=== PATIENT | female | born 1945 | race Caucasian/White ===

== ENCOUNTER 2020-12-18 08:41 | Inpatient (IN) | payer MEDICARE, OTHER ==
[~2020-12-18 08:41] MED LIST: ALENDRONATE SODI5 MG PO; CENTRUM SILVER1 EAC4 PO; DIGITEK125 MC1 PO; EFFEXOR XR150 MG PO; LANOXIN125 MCG PO; LASIX20 MG PO; LIPITOR20 M1 PO; LOSARTAN-HCTZ1 EAC1 PO; NORVASC10 MG PO; OXYCODONE-ACET1 EACH PO; PERCOCET 10-321 EACH PO; PLAQUENIL200 MG PO; PREDNISONE5 MG PO; PROBIOTIC1 EAC1 PO; PROBIOTIC250 MG PO; REQUIP1 MG PO; TOPROL XL100 MG PO; XARELTO20 MG PO
[2020-12-18 09:59] LABS: BASOPHIL 0.9 % (0-2); EOSINOPHIL 1.6 % (0-7); HCT 32.9 % (37.0-47.0); HGB 10.3 g/dl (12.5-16.0); MCH 30.6 pg (25.0-31.0); MCHC 31.3 g/dL (32.0-36.0); MCV 97.6 fL (78.0-100.0); MPV 10.2 fL (6.0-9.5); NEUTROPHIL 82.1 % (41-80); NRBC 0; PLT 243 K/uL (150-400); RBC 3.37 M/uL (4.20-5.40); WBC 9.2 K/uL (4.0-10.5)
[2020-12-18 10:04] LABS: INR 1.19 (0.9-1.2); PROTHROMBIN TIME 14.3 SECONDS (11.4-13.6); PTT 36.7 SECONDS (22.2-34.7)
[2020-12-18 10:15] LABS: IRON % SATURATION 13.4 %SAT (20-50)
[2020-12-18 10:25] LABS: ALBUMIN 3.3 g/dL (3.4-5.0); BILIRUBIN - TOTAL 0.7 mg/dL (0.2-1.0); BUN/CREAT RATIO (CALC) 21.2 RATIO; CREATININE 1.65 mg/dL (0.51-0.95); GLOBULIN (CALCULATION) 4.7 g/dL; MAGNESIUM 2.9 mg/dL (1.8-2.4); POTASSIUM 4.5 mmol/L (3.5-5.1)
[2020-12-18 10:42] LABS: BILIRUBIN NEGATIVE (NEGATIVE); BLOOD NEGATIVE Ery/uL (NEGATIVE); CLARITY CLEAR (CLEAR); COLOR YELLOW (YELLOW); GLUCOSE (U) NORMAL (NORMAL); LEUKOCYTES NEGATIVE Leu/uL (NEGATIVE); NITRITE NEGATIVE (NEGATIVE); PROTEIN TRACE (LOW) mg/dL (NEGATIVE); SPECIFIC GRAVITY 1.015 (1.001-1.030); UROBILINOGEN 0.2 mg/dL (0.2-1.0); pH 8.5 (5.0-9.0)
[2020-12-18 10:51] LABS: BACTERIA TRACE; SQUAMOUS EPITHELIAL CELLS RARE
[2020-12-18] MEDS ORDERED: PREDNISONE5 MG PO (12:35)
[2020-12-18] MEDS ORDERED: TOPROL XL 25MG25 MG PO (12:35)
[2020-12-18] MEDS ORDERED: ALENDRONATE SOD35 MG PO (12:36)
[2020-12-18] MEDS ORDERED: VENLAFAXINE HC150 MG PO (12:38)
[2020-12-18] MEDS ORDERED: PERCOCET 10-321 EACH PO (12:38)
[2020-12-18] MEDS ORDERED: ALDACTONE25 MG PO (12:38)
[2020-12-18] MEDS ORDERED: RETACRIT10000 UNIT SC (12:40)
[2020-12-18] MEDS ORDERED: ANORO ELLIPTA1 EACH INH (12:41)
[2020-12-18] MEDS ORDERED: PLAVIX75 MG PO (12:41)
[2020-12-18] MEDS ORDERED: LASIX40 MG PO (12:42)
[2020-12-18] MEDS ORDERED: TRAZODONE 100M100 MG PO (12:44)
[2020-12-18] MEDS ORDERED: HYDROXYCHLOROQ200 MG PO (12:45)
[2020-12-18] MEDS ORDERED: REQUIP1 MG PO (12:46)
[2020-12-18] MEDS ORDERED: MULTI FOR HER1 EACH PO (12:46)
[2020-12-18] MEDS ORDERED: ZOFRAN4 M1 PO (12:47)
[2020-12-18] MEDS ORDERED: UROCIT-K10 MEQ PO (12:47)
[2020-12-18] MEDS ORDERED: CIPRO250 MG PO (12:48)
[2020-12-18] MEDS ORDERED: HYDRALAZINE25 MG PO (12:50)
[2020-12-18] MEDS ORDERED: GABAPENTIN100 MG PO (12:51)
[2020-12-19 03:56] LABS: HCT 33.1 % (37.0-47.0); HGB 10.5 g/dl (12.5-16.0); MCH 30.5 pg (25.0-31.0); MCHC 31.7 g/dL (32.0-36.0); MCV 96.2 fL (78.0-100.0); MPV 9.5 fL (6.0-9.5); RBC 3.44 M/uL (4.20-5.40); RDW 13.7 % (11.5-14.0); WBC 7.2 K/uL (4.0-10.5)
[2020-12-19 04:24] LABS: BUN/CREAT RATIO (CALC) 23.6 RATIO; CREATININE 1.4 mg/dL (0.51-0.95)
[2020-12-20 04:30] LABS: HCT 36.1 % (37.0-47.0); HGB 11.6 g/dl (12.5-16.0); MCH 30.9 pg (25.0-31.0); MCHC 32.1 g/dL (32.0-36.0); MCV 96.3 fL (78.0-100.0); MPV 9.4 fL (6.0-9.5); RBC 3.75 M/uL (4.20-5.40); RDW 13.5 % (11.5-14.0); WBC 8.3 K/uL (4.0-10.5)
[2020-12-20 04:55] LABS: BUN/CREAT RATIO (CALC) 23.6 RATIO; CREATININE 1.95 mg/dL (0.51-0.95); POTASSIUM 4.5 mmol/L (3.5-5.1)
[2020-12-20] MEDS ORDERED: TOPROL XL 50 MG50 MG PO (09:55)
[2020-12-20] MEDS ORDERED: NORVASC5 MG PO (09:55)
[2020-12-20] MEDS ORDERED: MEDROL 4MG DOSEP4 MG PO (09:56)
[2021-02-02] MEDS ORDERED: NEURONTIN100 M1 PO (14:33)
[2021-02-02] MEDS ORDERED: OXYCODONE-ACET1 EACH PO (17:20)
[2021-03-23] MEDS ORDERED: MORPHINE SULFAT15 MG PO ×2 (18:03→18:10)
[2021-03-23] MEDS ORDERED: OXYCODONE-ACET1 EACH PO (18:03)
[2021-04-21] MEDS ORDERED: OXYCODONE-ACET1 EACH PO (17:52)
[2021-06-07] MEDS ORDERED: OXYCODONE-ACET1 EACH PO (10:53)
== END 2020-12-20 11:43 | disposition home or self-care (01) | DRG 291 ==
LOC: FER 08:41 → FTCU 11:03
PROVIDERS: Emergency Medicine; Internal Medicine Cardiovascular Disease; ADMIT Hospitalist
DX: I11.0 Hypertensive heart disease with heart failure (principal); U07.1 COVID-19; J96.01 Acute respiratory failure with hypoxia; I47.2 Ventricular tachycardia; I50.33 Acute on chronic diastolic (congestive) heart failure; I16.0 Hypertensive urgency; I25.10 Atherosclerotic heart disease of native coronary artery without angina pectoris; M06.9 Rheumatoid arthritis, unspecified; I27.20 Pulmonary hypertension, unspecified; I48.0 Paroxysmal atrial fibrillation; G89.4 Chronic pain syndrome; J44.9 Chronic obstructive pulmonary disease, unspecified; F41.9 Anxiety disorder, unspecified; I25.2 Old myocardial infarction; Z95.5 Presence of coronary angioplasty implant and graft; Z98.41 Cataract extraction status, right eye; Z98.42 Cataract extraction status, left eye; Z90.49 Acquired absence of other specified parts of digestive tract; Z87.891 Personal history of nicotine dependence
CPT/HCPCS: 36415; 71046; 80048; 80053; 81001; 83540; 83550; 83735; 83880; 84443; 84484; 85025; 85610; 85730; 94010; C9399; G0378; J1100; J1650; J7050; J7512; Q0162; U0002

== ENCOUNTER 2021-01-20 10:24 | Inpatient (IN) | payer MEDICARE ==
[~2021-01-20 10:24] MED LIST changes: +ALDACTONE25 MG PO; +ALENDRONATE SOD35 MG PO; +ANORO ELLIPTA1 EACH INH; +CIPRO250 MG PO; +GABAPENTIN100 MG PO; +HYDRALAZINE25 MG PO; +HYDROXYCHLOROQ200 MG PO; +LASIX40 MG PO; +MEDROL 4MG DOSEP4 MG PO; +MULTI FOR HER1 EACH PO; +NORVASC5 MG PO; +PLAVIX75 MG PO; +RETACRIT10000 UNIT SC; +TOPROL XL 25MG25 MG PO; +TOPROL XL 50 MG50 MG PO; +TRAZODONE 100M100 MG PO; +UROCIT-K10 MEQ PO; +VENLAFAXINE HC150 MG PO; +ZOFRAN4 M1 PO
[2021-01-20 12:34] LABS: BASOPHIL 0.5 % (0-2); EOSINOPHIL 1.8 % (0-7); HGB 8.2 g/dl (12.5-16.0); LYMPHOCYTE 7.8 % (15-48); MCH 30.6 pg (25.0-31.0); MCHC 32.8 g/dL (32.0-36.0); MCV 93.3 fL (78.0-100.0); MONOCYTE 8.6 % (0-12); MPV 9.9 fL (6.0-9.5); NEUTROPHIL 80.5 % (41-80); NRBC 0; PLT 286 K/uL (150-400); RBC 2.68 M/uL (4.20-5.40); RDW 16.2 % (11.5-14.0); RETICULOCYTE COUNT 6.9 % (1.0-2.0); WBC 7.3 K/uL (4.0-10.5)
[2021-01-20 12:37] LABS: INR 0.91 (0.9-1.2); PROTHROMBIN TIME 11.6 SECONDS (11.4-13.6); PTT 32.6 SECONDS (22.2-34.7)
[2021-01-20 12:48] LABS: IRON % SATURATION 13.1 %SAT (20-50)
[2021-01-20 12:55] LABS: LACTIC ACID 1.7 mmol/L (0.4-1.9)
[2021-01-20 13:05] LABS: ALBUMIN 3.5 g/dL (3.4-5.0); BILIRUBIN - TOTAL 1.2 mg/dL (0.2-1.0); CREATININE 1.62 mg/dL (0.51-0.95); GLOBULIN (CALCULATION) 3.7 g/dL; MAGNESIUM 2.1 mg/dL (1.8-2.4); POTASSIUM 4.3 mmol/L (3.5-5.1); TOTAL PROTEIN 7.2 g/dL (6.4-8.2)
[2021-01-20 14:36] LABS: BILIRUBIN NEGATIVE (NEGATIVE); BLOOD 2+ Ery/uL (NEGATIVE); CLARITY CLEAR (CLEAR); COLOR YELLOW (YELLOW); GLUCOSE (U) NORMAL (NORMAL); LEUKOCYTES NEGATIVE Leu/uL (NEGATIVE); NITRITE NEGATIVE (NEGATIVE); PROTEIN NEGATIVE (NEGATIVE); UROBILINOGEN 0.2 mg/dL (0.2-1.0)
[2021-01-20 14:41] LABS: BACTERIA TRACE
[2021-01-20] MEDS ORDERED: LOPRESSOR25 MG PO (18:33)
[2021-01-21 05:47] LABS: BASOPHIL 0.3 % (0-2); EOSINOPHIL 0 % (0-7); HCT 21.6 % (37.0-47.0); LYMPHOCYTE 8.1 % (15-48); MCH 30.7 pg (25.0-31.0); MCHC 32.4 g/dL (32.0-36.0); MCV 94.7 fL (78.0-100.0); MONOCYTE 5.5 % (0-12); MPV 9.4 fL (6.0-9.5); NRBC 0; PLT 223 K/uL (150-400); RBC 2.28 M/uL (4.20-5.40); RDW 16.2 % (11.5-14.0); WBC 6.4 K/uL (4.0-10.5)
[2021-01-21 06:18] LABS: ALBUMIN 2.7 g/dL (3.4-5.0); BILIRUBIN - TOTAL 0.6 mg/dL (0.2-1.0); BUN/CREAT RATIO (CALC) 22.2 RATIO; C-REACTIVE PROTEIN 5.7 mg/dL (<=0.90); CREATININE 1.35 mg/dL (0.51-0.95); GLOBULIN (CALCULATION) 3.8 g/dL; TOTAL PROTEIN 6.5 g/dL (6.4-8.2)
--- NOTE | 2021-01-21 14:31 | NUR ---
01/21/21 Ms. Azael londono lives at home with her spouse. She does not use any DME nor is she followed by services. Discharge is anticipated for 01/22. No discharge planning needs are anticipated.
[2021-01-22] MEDS ORDERED: LOPRESSOR50 MG PO ×2 (08:21→08:54)
[2021-01-22] MEDS ORDERED: PREDNISONE 20MG20 MG PO (08:21)
[2021-01-22] MEDS ORDERED: ELIQUIS2.5 MG PO (08:21)
[2021-01-22] MEDS ORDERED: PREDNISONE 10MG10 MG PO (08:21)
[2021-01-22] MEDS ORDERED: ISOSORBIDE MONO60 M1 PO (08:34)
[2021-01-22] MEDS ORDERED: CARDIZEM CD120 MG PO (08:58)
[2021-01-22 09:18] LABS: BASOPHIL 0.4 % (0-2); EOSINOPHIL 0.6 % (0-7); HCT 27.6 % (37.0-47.0); HGB 8.9 g/dl (12.5-16.0); LYMPHOCYTE 13.5 % (15-48); MCH 30.8 pg (25.0-31.0); MCHC 32.2 g/dL (32.0-36.0); MCV 95.5 fL (78.0-100.0); MONOCYTE 7.1 % (0-12); MPV 9.3 fL (6.0-9.5); NEUTROPHIL 76.1 % (41-80); NRBC 0; PLT 301 K/uL (150-400); RBC 2.89 M/uL (4.20-5.40); RDW 16.4 % (11.5-14.0); WBC 10.8 K/uL (4.0-10.5)
[2021-01-22 09:44] LABS: BUN/CREAT RATIO (CALC) 22.1 RATIO; CREATININE 1.31 mg/dL (0.51-0.95); POTASSIUM 3.3 mmol/L (3.5-5.1)
[2021-02-02] MEDS ORDERED: NEURONTIN100 M1 PO (14:33)
[2021-02-02] MEDS ORDERED: OXYCODONE-ACET1 EACH PO (17:20)
[2021-03-23] MEDS ORDERED: MORPHINE SULFAT15 MG PO ×2 (18:03→18:10)
[2021-03-23] MEDS ORDERED: OXYCODONE-ACET1 EACH PO (18:03)
[2021-04-21] MEDS ORDERED: OXYCODONE-ACET1 EACH PO (17:52)
[2021-06-07] MEDS ORDERED: OXYCODONE-ACET1 EACH PO (10:53)
== END 2021-01-22 12:20 | disposition home or self-care (01) | DRG 546 ==
LOC: FER 10:24 → FICU 16:08 → FMS 01-21 12:11
PROVIDERS: Emergency Medicine; ADMIT Allergy & Immunology Allergy
PROC: 30233N1 Transfusion of Nonautologous Red Blood Cells into Peripheral Vein, Percutaneous Approach (ICD-10-PCS; principal; 2021-01-21)
DX: M06.9 Rheumatoid arthritis, unspecified (principal); I48.20 Chronic atrial fibrillation, unspecified; I50.30 Unspecified diastolic (congestive) heart failure; I13.0 Hypertensive heart and chronic kidney disease with heart failure and stage 1 through stage 4 chronic kidney disease, or unspecified chronic kidney disease; M35.3 Polymyalgia rheumatica; I27.20 Pulmonary hypertension, unspecified; I08.0 Rheumatic disorders of both mitral and aortic valves; Z20.822 Contact with and (suspected) exposure to COVID-19; E11.22 Type 2 diabetes mellitus with diabetic chronic kidney disease; D63.1 Anemia in chronic kidney disease; I72.8 Aneurysm of other specified arteries; K13.79 Other lesions of oral mucosa; N18.30 Chronic kidney disease, stage 3 unspecified; F32.9 Major depressive disorder, single episode, unspecified; E78.5 Hyperlipidemia, unspecified; E55.9 Vitamin D deficiency, unspecified; G89.4 Chronic pain syndrome; L89.151 Pressure ulcer of sacral region, stage 1; Z95.5 Presence of coronary angioplasty implant and graft; I25.2 Old myocardial infarction; Z79.02 Long term (current) use of antithrombotics/antiplatelets; Z79.52 Long term (current) use of systemic steroids; Z79.899 Other long term (current) drug therapy; Z87.11 Personal history of peptic ulcer disease; Z90.49 Acquired absence of other specified parts of digestive tract; Z98.890 Other specified postprocedural states
CPT/HCPCS: 36415; 36430; 71045; 80048; 80053; 81001; 82728; 83540; 83550; 83605; 83615; 83735; 83880; 84145; 84443; 84484; 85025; 85610; 85730; 86140; 86850; 86900; 86901; 86922; 87040; 93005; 97165; 97530; G0378; J0360; J0696; J0878; J1170; J2765; J2930; J7030; J7512; P9016; U0002

== ENCOUNTER 2021-02-26 07:38 | Day surgery (SDCO) | payer MEDICARE, OTHER ==
[~2021-02-26] VITALS: Ht 162.6 cm; Wt 62.8 kg
[~2021-02-26 07:38] MED LIST changes: +CARDIZEM CD120 MG PO; +ELIQUIS2.5 MG PO; +ISOSORBIDE MONO60 M1 PO; +LOPRESSOR25 MG PO; +LOPRESSOR50 MG PO; +NEURONTIN100 M1 PO; +PREDNISONE 10MG10 MG PO; +PREDNISONE 20MG20 MG PO
[2021-02-26 08:14] LABS: BASOPHIL 0.8 % (0-2); EOSINOPHIL 1.4 % (0-7); HCT 33.9 % (37.0-47.0); HGB 10.7 g/dl (12.5-16.0); LYMPHOCYTE 10.8 % (15-48); MCH 30.9 pg (25.0-31.0); MCHC 31.6 g/dL (32.0-36.0); MONOCYTE 9.1 % (0-12); MPV 9.9 fL (6.0-9.5); NEUTROPHIL 77.4 % (41-80); NRBC 0; PLT 189 K/uL (150-400); RBC 3.46 M/uL (4.20-5.40); RDW 15.2 % (11.5-14.0); WBC 8.5 K/uL (4.0-10.5)
[2021-02-26 08:21] LABS: INR 1.2 (0.9-1.2); PROTHROMBIN TIME 14.4 SECONDS (11.4-13.6)
[2021-02-26 08:41] LABS: ALBUMIN 3.6 g/dL (3.4-5.0); BILIRUBIN - TOTAL 0.7 mg/dL (0.2-1.0); CREATININE 1.55 mg/dL (0.51-0.95); TOTAL PROTEIN 7.6 g/dL (6.4-8.2)
[2021-02-26] MEDS ORDERED: LIPITOR20 MG PO (15:06)
[2021-02-26] MEDS ORDERED: PREDNISONE 5MG T5 MG PO (15:07)
[2021-02-26] MEDS ORDERED: NORVASC5 MG PO (15:09)
[2021-02-26] MEDS ORDERED: K-DUR20 MEQ PO (15:10)
[2021-02-26] MEDS ORDERED: TOPROL XL 25MG25 MG PO (15:11)
[2021-02-26] MEDS ORDERED: CITRATE OF MAG296 ML PO (15:40)
[2021-02-27 04:10] LABS: BASOPHIL 0.8 % (0-2); EOSINOPHIL 0.4 % (0-7); HCT 33.6 % (37.0-47.0); HGB 10.7 g/dl (12.5-16.0); LYMPHOCYTE 12.4 % (15-48); MCH 30.7 pg (25.0-31.0); MCHC 31.8 g/dL (32.0-36.0); MCV 96.6 fL (78.0-100.0); MONOCYTE 4.2 % (0-12); MPV 10.2 fL (6.0-9.5); NEUTROPHIL 81.8 % (41-80); NRBC 0; PLT 193 K/uL (150-400); RBC 3.48 M/uL (4.20-5.40); RDW 14.8 % (11.5-14.0)
[2021-02-27 04:54] LABS: CREATININE 1.32 mg/dL (0.51-0.95)
[2021-02-27 04:55] LABS: POTASSIUM 4.2 mmol/L (3.5-5.1)
--- NOTE | 2021-02-27 09:56 | NUR ---
PT IS OBS. PLEASE CONSIDER INPT OR D/C. THANKS,
[2021-02-28 06:07] LABS: BASOPHIL 0.9 % (0-2); EOSINOPHIL 1.4 % (0-7); HCT 35.2 % (37.0-47.0); HGB 11.5 g/dl (12.5-16.0); LYMPHOCYTE 19.3 % (15-48); MCH 30.9 pg (25.0-31.0); MCHC 32.7 g/dL (32.0-36.0); MCV 94.6 fL (78.0-100.0); MONOCYTE 10.8 % (0-12); MPV 10.5 fL (6.0-9.5); NEUTROPHIL 67.3 % (41-80); NRBC 0; PLT 233 K/uL (150-400); RBC 3.72 M/uL (4.20-5.40); RDW 14.6 % (11.5-14.0)
[2021-02-28 06:58] LABS: CREATININE 1.5 mg/dL (0.51-0.95); POTASSIUM 3.6 mmol/L (3.5-5.1)
[2021-02-28] MEDS ORDERED: TOPROL XL 50 MG50 MG PO (09:58)
[2021-02-28] MEDS ORDERED: LASIX20 MG PO (10:00)
[2021-03-02 12:05] LABS: IRON % SATURATION 32.6 %SAT (20-50)
[2021-03-23] MEDS ORDERED: MORPHINE SULFAT15 MG PO ×2 (18:03→18:10)
[2021-03-23] MEDS ORDERED: OXYCODONE-ACET1 EACH PO (18:03)
== END 2021-02-28 10:43 | disposition home or self-care (01) ==
LOC: FER 07:38 → FTCU 12:04
PROVIDERS: Emergency Medicine; Internal Medicine Cardiovascular Disease; ADMIT Internal Medicine
DX: I13.0 Hypertensive heart and chronic kidney disease with heart failure and stage 1 through stage 4 chronic kidney disease, or unspecified chronic kidney disease (principal); I50.33 Acute on chronic diastolic (congestive) heart failure; N18.30 Chronic kidney disease, stage 3 unspecified; J44.1 Chronic obstructive pulmonary disease with (acute) exacerbation; I65.21 Occlusion and stenosis of right carotid artery; I16.1 Hypertensive emergency; M06.9 Rheumatoid arthritis, unspecified; D64.9 Anemia, unspecified; I48.20 Chronic atrial fibrillation, unspecified; I27.20 Pulmonary hypertension, unspecified; I25.10 Atherosclerotic heart disease of native coronary artery without angina pectoris; I25.2 Old myocardial infarction; D50.9 Iron deficiency anemia, unspecified; E78.5 Hyperlipidemia, unspecified; Z90.49 Acquired absence of other specified parts of digestive tract; Z20.822 Contact with and (suspected) exposure to COVID-19; Z79.899 Other long term (current) drug therapy; Z87.891 Personal history of nicotine dependence; Z98.890 Other specified postprocedural states; Z95.818 Presence of other cardiac implants and grafts; Z79.01 Long term (current) use of anticoagulants
CPT/HCPCS: 36415; 71045; 80048; 80053; 82607; 82728; 83540; 83550; 83880; 84484; 85025; 85610; 93005; 94640; 94664; G0378; J0360; J1940; J7512; U0002

== ENCOUNTER 2021-11-12 07:22 | Emergency (ER) | payer MEDICARE, OTHER ==
[~2021-11-12 07:22] MED LIST changes: +CITRATE OF MAG296 ML PO; +K-DUR20 MEQ PO; +LIPITOR20 MG PO; +MORPHINE SULFAT15 MG PO; +PREDNISONE 5MG T5 MG PO
[2021-11-12 08:10] LABS: BASOPHIL 0.6 % (0-2); HCT 34.6 % (37.0-47.0); HGB 10.8 g/dl (12.5-16.0); LYMPHOCYTE 6.6 % (15-48); MCH 30.1 pg (25.0-31.0); MCHC 31.2 g/dL (32.0-36.0); MCV 96.4 fL (78.0-100.0); MONOCYTE 6.4 % (0-12); MPV 10.3 fL (6.0-9.5); NEUTROPHIL 83.9 % (41-80); NRBC 0; PLT 169 K/uL (150-400); RBC 3.59 M/uL (4.20-5.40); RDW 15.3 % (11.5-14.0); WBC 8.8 K/uL (4.0-10.5)
[2021-11-12 08:39] LABS: BILIRUBIN NEGATIVE (NEGATIVE); BLOOD 1+ Ery/uL (NEGATIVE); CLARITY CLEAR (CLEAR); COLOR YELLOW (YELLOW); GLUCOSE (U) NORMAL (NORMAL); LEUKOCYTES NEGATIVE Leu/uL (NEGATIVE); NITRITE NEGATIVE (NEGATIVE); PROTEIN 2+ mg/dL (NEGATIVE); UROBILINOGEN 0.2 mg/dL (0.2-1.0)
[2021-11-12 08:53] LABS: BILIRUBIN - TOTAL 0.4 mg/dL (0.2-1.0); BUN/CREAT RATIO (CALC) 21.2 RATIO; CREATININE 1.7 mg/dL (0.51-0.95); GLOBULIN (CALCULATION) 4.7 g/dL; POTASSIUM 3.6 mmol/L (3.5-5.1); TOTAL PROTEIN 7.7 g/dL (6.4-8.2)
[2021-11-12 08:57] LABS: CKMB 2.5 ng/mL (0.0-3.6)
[2021-11-12 09:07] LABS: BACTERIA TRACE
[2021-11-12] MEDS ORDERED: PREDNISONE 20MG20 MG PO (09:45)
== END 2021-11-12 10:33 | disposition home or self-care (01) ==
LOC: FER 07:22
PROVIDERS: Emergency Medicine
DX: M06.8A Other specified rheumatoid arthritis, other specified site (principal); I10 Essential (primary) hypertension; J44.9 Chronic obstructive pulmonary disease, unspecified; I25.2 Old myocardial infarction; I48.91 Unspecified atrial fibrillation; Z79.02 Long term (current) use of antithrombotics/antiplatelets; Z79.899 Other long term (current) drug therapy; Z20.822 Contact with and (suspected) exposure to COVID-19
CPT/HCPCS: 36415; 36600; 74022; 80053; 81001; 82553; 82803; 83880; 84484; 85025; 93005; 93971; U0002

== ENCOUNTER 2021-12-04 05:36 | Inpatient (IN) | payer MEDICARE, OTHER ==
[~2021-12-04] VITALS: Ht 162.6 cm; Wt 73.7 kg
[2021-12-04 06:10] LABS: BASOPHIL 0.6 % (0-2); EOSINOPHIL 2.7 % (0-7); HCT 36.7 % (37.0-47.0); HGB 11.3 g/dl (12.5-16.0); LYMPHOCYTE 17.9 % (15-48); MCH 30.2 pg (25.0-31.0); MCHC 30.8 g/dL (32.0-36.0); MCV 98.1 fL (78.0-100.0); MPV 10.4 fL (6.0-9.5); NEUTROPHIL 70.1 % (41-80); NRBC 0; PLT 148 K/uL (150-400); RBC 3.74 M/uL (4.20-5.40); RDW 16.1 % (11.5-14.0); WBC 8.2 K/uL (4.0-10.5)
[2021-12-04 06:25] LABS: ALBUMIN 3.2 g/dL (3.4-5.0); BILIRUBIN - TOTAL 0.6 mg/dL (0.2-1.0); BUN/CREAT RATIO (CALC) 20.8 RATIO; CREATININE 1.49 mg/dL (0.51-0.95); TOTAL PROTEIN 7.2 g/dL (6.4-8.2)
[2021-12-04 06:26] LABS: LACTIC ACID 0.8 mmol/L (0.4-1.9)
[2021-12-04 06:47] LABS: CORONAVIRUS 2019 SARS-COV-2 NEGATIVE (NEGATIVE); INFLUENZA A NAA NEGATIVE (NEGATIVE)
[2021-12-04] MEDS ORDERED: TOPROL XL 25MG25 MG PO (08:29)
[2021-12-04] MEDS ORDERED: PROTONIX 40MG T40 MG PO (08:32)
[2021-12-04] MEDS ORDERED: LASIX40 MG PO (08:34)
[2021-12-04 11:18] LABS: BUN/CREAT RATIO (CALC) 21.1 RATIO; CREATININE 1.42 mg/dL (0.51-0.95); POTASSIUM 3.5 mmol/L (3.5-5.1)
[2021-12-05 05:37] LABS: BASOPHIL 0.3 % (0-2); EOSINOPHIL 0.6 % (0-7); HCT 36.3 % (37.0-47.0); HGB 11.1 g/dl (12.5-16.0); LYMPHOCYTE 8.1 % (15-48); MCH 30.2 pg (25.0-31.0); MCHC 30.6 g/dL (32.0-36.0); MCV 98.9 fL (78.0-100.0); MPV 10.7 fL (6.0-9.5); NEUTROPHIL 82.6 % (41-80); NRBC 0; PLT 157 K/uL (150-400); RBC 3.67 M/uL (4.20-5.40); RDW 16.1 % (11.5-14.0); WBC 9.3 K/uL (4.0-10.5)
[2021-12-05 06:14] LABS: BUN/CREAT RATIO (CALC) 22.7 RATIO; CREATININE 1.63 mg/dL (0.51-0.95); POTASSIUM 3.9 mmol/L (3.5-5.1)
[2021-12-06 03:49] LABS: RETICULOCYTE COUNT 2.3 % (1.0-2.0)
[2021-12-06 04:09] LABS: IRON % SATURATION 14.7 %SAT (20-50)
[2021-12-06 04:36] LABS: BUN/CREAT RATIO (CALC) 23.8 RATIO; CREATININE 1.6 mg/dL (0.51-0.95); POTASSIUM 4.4 mmol/L (3.5-5.1)
--- NOTE | 2021-12-06 10:20 | NUR ---
12/06/21 Ms. Magallon lives at home with her spouse. She has 02 @ 2 L for nocturnal use and portable tanks. She does not know the name of the [employer] company. They are located in [facility]. She does not use other DME. Ms. Magallon does not believe she is in need of services. Ghazala Lozada NP, is the PCP.
[2021-12-06] MEDS ORDERED: BUMETANIDE2 MG PO (11:12)
[2021-12-06] MEDS ORDERED: TOPROL XL 50 MG50 MG PO (11:12)
== END 2021-12-06 12:10 | disposition home or self-care (01) | DRG 291 ==
LOC: FER 05:36 → FTCU 07:34
PROVIDERS: Emergency Medicine; Nurse Practitioner Acute Care; ADMIT Family Medicine
DX: I13.0 Hypertensive heart and chronic kidney disease with heart failure and stage 1 through stage 4 chronic kidney disease, or unspecified chronic kidney disease (principal); I50.33 Acute on chronic diastolic (congestive) heart failure; J96.01 Acute respiratory failure with hypoxia; J44.1 Chronic obstructive pulmonary disease with (acute) exacerbation; I48.20 Chronic atrial fibrillation, unspecified; I16.1 Hypertensive emergency; N18.30 Chronic kidney disease, stage 3 unspecified; Z20.822 Contact with and (suspected) exposure to COVID-19; I25.10 Atherosclerotic heart disease of native coronary artery without angina pectoris; K21.9 Gastro-esophageal reflux disease without esophagitis; G25.81 Restless legs syndrome; F32.A Depression, unspecified; I27.20 Pulmonary hypertension, unspecified; E87.6 Hypokalemia; D69.6 Thrombocytopenia, unspecified; R94.31 Abnormal electrocardiogram [ECG] [EKG]; R73.9 Hyperglycemia, unspecified; R77.8 Other specified abnormalities of plasma proteins; E78.5 Hyperlipidemia, unspecified; E55.9 Vitamin D deficiency, unspecified; D50.9 Iron deficiency anemia, unspecified; M51.36 Other intervertebral disc degeneration, lumbar region; M06.9 Rheumatoid arthritis, unspecified; Z90.49 Acquired absence of other specified parts of digestive tract; I25.2 Old myocardial infarction; Z87.891 Personal history of nicotine dependence; Z95.5 Presence of coronary angioplasty implant and graft; Z99.81 Dependence on supplemental oxygen; Z79.02 Long term (current) use of antithrombotics/antiplatelets; Z79.899 Other long term (current) drug therapy; Z98.49 Cataract extraction status, unspecified eye; Z82.49 Family history of ischemic heart disease and other diseases of the circulatory system; Z79.01 Long term (current) use of anticoagulants
CPT/HCPCS: 36415; 71045; 80048; 80053; 82607; 82728; 83036; 83540; 83550; 83605; 83880; 84145; 84484; 85025; 87040; 93005; 94010; 94640; 94664; 94762; J1940; J2405; J7512; U0002

== ENCOUNTER 2022-01-06 18:34 | Inpatient (IN) | payer MEDICARE, OTHER ==
[~2022-01-06] VITALS: Ht 162.6 cm; Wt 71.0 kg
[~2022-01-06 18:34] MED LIST changes: +BUMETANIDE2 MG PO; +NARCAN4 MG; +PROTONIX 40MG T40 MG PO
[2022-01-06 19:04] LABS: BASOPHIL 0.5 % (0-2); EOSINOPHIL 2.2 % (0-7); HCT 31.3 % (37.0-47.0); HGB 9.9 g/dl (12.5-16.0); LYMPHOCYTE 7.2 % (15-48); MCH 29.7 pg (25.0-31.0); MCHC 31.6 g/dL (32.0-36.0); MONOCYTE 9.4 % (0-12); MPV 10.3 fL (6.0-9.5); NEUTROPHIL 80.3 % (41-80); NRBC 0; PLT 186 K/uL (150-400); RBC 3.33 M/uL (4.20-5.40); RDW 15.1 % (11.5-14.0); WBC 11.3 K/uL (4.0-10.5)
[2022-01-06 19:35] LABS: ALBUMIN 2.8 g/dL (3.4-5.0); BILIRUBIN - TOTAL 0.7 mg/dL (0.2-1.0); BUN/CREAT RATIO (CALC) 16.8 RATIO; CREATININE 1.43 mg/dL (0.51-0.95); GLOBULIN (CALCULATION) 4.7 g/dL; POTASSIUM 3.3 mmol/L (3.5-5.1); TOTAL PROTEIN 7.5 g/dL (6.4-8.2)
[2022-01-06 19:38] LABS: LACTIC ACID 0.7 mmol/L (0.4-1.9)
[2022-01-06 20:18] LABS: CORONAVIRUS 2019 SARS-COV-2 NEGATIVE (NEGATIVE); INFLUENZA A NAA NEGATIVE (NEGATIVE)
[2022-01-06 22:17] LABS: BILIRUBIN NEGATIVE (NEGATIVE); BLOOD TRACE-INTACT Ery/uL (NEGATIVE); CLARITY CLEAR (CLEAR); COLOR YELLOW (YELLOW); GLUCOSE (U) NORMAL (NORMAL); LEUKOCYTES NEGATIVE Leu/uL (NEGATIVE); NITRITE NEGATIVE (NEGATIVE); PROTEIN 2+ mg/dL (NEGATIVE); UROBILINOGEN 0.2 mg/dL (0.2-1.0); pH 6.5 (5.0-9.0)
[2022-01-06 22:24] LABS: BACTERIA 1+; URINARY WBC RARE
[2022-01-07] MEDS ORDERED: TOPROL XL 25MG25 MG PO (02:21)
[2022-01-07] MEDS ORDERED: MULTI-VITAMIN1 EACH PO (02:22)
[2022-01-07] MEDS ORDERED: ONDANSETRON HCL4 MG PO (02:23)
[2022-01-07] MEDS ORDERED: ALENDRONATE SOD35 MG PO (02:29)
[2022-01-08 06:20] LABS: BASOPHIL 0.5 % (0-2); EOSINOPHIL 1.2 % (0-7); HCT 32.6 % (37.0-47.0); HGB 9.9 g/dl (12.5-16.0); LYMPHOCYTE 9.7 % (15-48); MCH 29.5 pg (25.0-31.0); MCHC 30.4 g/dL (32.0-36.0); MONOCYTE 7.7 % (0-12); NEUTROPHIL 80.3 % (41-80); NRBC 0; PLT 218 K/uL (150-400); RBC 3.36 M/uL (4.20-5.40); RDW 15.1 % (11.5-14.0); WBC 12.8 K/uL (4.0-10.5)
[2022-01-08 06:55] LABS: BUN/CREAT RATIO (CALC) 20.8 RATIO; CREATININE 1.73 mg/dL (0.51-0.95); POTASSIUM 4.4 mmol/L (3.5-5.1)
--- NOTE | 2022-01-08 19:11 | NUR ---
GAVE PATIENT AMIO 200MG PO AND ORDERED TO TURN AMIO OFF COUPLE HOURS AFTER. MONITORED CLOSELY WITH HR CONTROLLED
[2022-01-09 06:54] LABS: BUN/CREAT RATIO (CALC) 20.3 RATIO; CREATININE 1.82 mg/dL (0.51-0.95); POTASSIUM 4.2 mmol/L (3.5-5.1)
--- NOTE | 2022-01-09 11:09 | NUR ---
WALK TEST PERFORMED FOR HOME 02
[2022-01-09] MEDS ORDERED: BUMETANIDE2 MG PO (11:54)
[2022-01-09] MEDS ORDERED: LOSARTAN POTASS25 MG PO (11:54)
[2022-01-09] MEDS ORDERED: AMIODARONE HCL200 MG PO (11:54)
[2022-01-09] MEDS ORDERED: TOPROL XL 50 MG50 MG PO (11:54)
--- NOTE | 2022-01-09 13:25 | NUR ---
PT DISCHARGED WITH AT SIDE VIA WHEELCHAIR. 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
== END 2022-01-09 13:26 | disposition home or self-care (01) | DRG 291 ==
LOC: FER 18:34 → FICU 22:07
PROVIDERS: Emergency Medicine; Internal Medicine Cardiovascular Disease; Nurse Practitioner Acute Care; ADMIT Internal Medicine
DX: I13.0 Hypertensive heart and chronic kidney disease with heart failure and stage 1 through stage 4 chronic kidney disease, or unspecified chronic kidney disease (principal); I50.23 Acute on chronic systolic (congestive) heart failure; J96.21 Acute and chronic respiratory failure with hypoxia; J44.1 Chronic obstructive pulmonary disease with (acute) exacerbation; I48.20 Chronic atrial fibrillation, unspecified; I31.3 Pericardial effusion (noninflammatory); I16.1 Hypertensive emergency; E87.3 Alkalosis; N18.30 Chronic kidney disease, stage 3 unspecified; Z20.822 Contact with and (suspected) exposure to COVID-19; I25.5 Ischemic cardiomyopathy; I49.3 Ventricular premature depolarization; Z66 Do not resuscitate; I25.10 Atherosclerotic heart disease of native coronary artery without angina pectoris; E78.5 Hyperlipidemia, unspecified; D50.9 Iron deficiency anemia, unspecified; F32.A Depression, unspecified; M06.9 Rheumatoid arthritis, unspecified; M51.36 Other intervertebral disc degeneration, lumbar region; I27.20 Pulmonary hypertension, unspecified; E55.9 Vitamin D deficiency, unspecified; Z99.81 Dependence on supplemental oxygen; I25.2 Old myocardial infarction; Z90.49 Acquired absence of other specified parts of digestive tract; Z90.3 Acquired absence of stomach [part of]; Z95.5 Presence of coronary angioplasty implant and graft; Z87.891 Personal history of nicotine dependence; Z79.02 Long term (current) use of antithrombotics/antiplatelets; Z79.01 Long term (current) use of anticoagulants; Z79.899 Other long term (current) drug therapy
CPT/HCPCS: 36415; 36600; 71045; 71250; 80048; 80053; 81001; 82803; 83605; 83735; 83880; 84145; 84484; 85025; 87040; 87088; 93005; 94010; 94640; 94664; 94762; J0282; J2543; J2930; J3475; J3490; J7050; J7060; J7512; U0002

== ENCOUNTER 2022-02-05 19:17 | Emergency (ER) | payer MEDICARE, OTHER ==
[~2022-02-05 19:17] MED LIST changes: +AMIODARONE HCL200 MG PO; +LOSARTAN POTASS25 MG PO; +MULTI-VITAMIN1 EACH PO; +ONDANSETRON HCL4 MG PO
[2022-02-05 20:22] LABS: BASOPHIL 0.8 % (0-2); EOSINOPHIL 1.2 % (0-7); HCT 33.2 % (37.0-47.0); HGB 9.9 g/dl (12.5-16.0); LYMPHOCYTE 8.4 % (15-48); MCH 28.3 pg (25.0-31.0); MCHC 29.8 g/dL (32.0-36.0); MCV 94.9 fL (78.0-100.0); MONOCYTE 9.1 % (0-12); MPV 10.4 fL (6.0-9.5); NEUTROPHIL 80.1 % (41-80); NRBC 0; PLT 231 K/uL (150-400); RDW 15.8 % (11.5-14.0)
[2022-02-05 20:47] LABS: ALBUMIN 2.7 g/dL (3.4-5.0); BILIRUBIN - TOTAL 0.4 mg/dL (0.2-1.0); BUN/CREAT RATIO (CALC) 19.4 RATIO; CREATININE 1.86 mg/dL (0.51-0.95); GLOBULIN (CALCULATION) 5.4 g/dL; POTASSIUM 4.4 mmol/L (3.5-5.1); TOTAL PROTEIN 8.1 g/dL (6.4-8.2)
[2022-02-05 21:00] LABS: CORONAVIRUS 2019 SARS-COV-2 NEGATIVE (NEGATIVE); INFLUENZA A NAA NEGATIVE (NEGATIVE)
== END 2022-02-05 23:16 | disposition home or self-care (01) ==
LOC: FER 19:17
PROVIDERS: Emergency Medicine
DX: I11.0 Hypertensive heart disease with heart failure (principal); I50.9 Heart failure, unspecified; J44.9 Chronic obstructive pulmonary disease, unspecified; I25.10 Atherosclerotic heart disease of native coronary artery without angina pectoris; Z20.822 Contact with and (suspected) exposure to COVID-19
CPT/HCPCS: 36415; 71045; 80053; 83880; 84484; 85025; 93005; J3490; U0002

== ENCOUNTER 2022-02-11 13:32 | Emergency (ER) | payer MEDICARE, OTHER ==
[2022-02-11 14:44] LABS: BASOPHIL 0.4 % (0-2); EOSINOPHIL 0.3 % (0-7); HCT 35.2 % (37.0-47.0); HGB 10.6 g/dl (12.5-16.0); LYMPHOCYTE 5.8 % (15-48); MCH 28.2 pg (25.0-31.0); MCHC 30.1 g/dL (32.0-36.0); MCV 93.6 fL (78.0-100.0); MONOCYTE 11.1 % (0-12); MPV 10.1 fL (6.0-9.5); NEUTROPHIL 81.8 % (41-80); NRBC 0; PLT 260 K/uL (150-400); RBC 3.76 M/uL (4.20-5.40); RDW 15.8 % (11.5-14.0); WBC 12.6 K/uL (4.0-10.5)
[2022-02-11 15:19] LABS: CREATININE 1.96 mg/dL (0.51-0.95); POTASSIUM 4.1 mmol/L (3.5-5.1)
[2022-02-11 15:23] LABS: ALBUMIN 2.9 g/dL (3.4-5.0); BILIRUBIN - TOTAL 0.8 mg/dL (0.2-1.0); GLOBULIN (CALCULATION) 4.8 g/dL; TOTAL PROTEIN 7.7 g/dL (6.4-8.2)
[2022-02-11] MEDS ORDERED: BUMETANIDE2 MG PO (17:52)
[2022-02-11] MEDS ORDERED: ONDANSETRON HCL4 MG PO (17:53)
== END 2022-02-11 18:30 | disposition home or self-care (01) ==
LOC: FER 13:32
PROVIDERS: Emergency Medicine
DX: I11.0 Hypertensive heart disease with heart failure (principal); I50.9 Heart failure, unspecified; J44.9 Chronic obstructive pulmonary disease, unspecified; I25.10 Atherosclerotic heart disease of native coronary artery without angina pectoris; Z95.5 Presence of coronary angioplasty implant and graft
CPT/HCPCS: 36415; 71045; 71250; 80053; 83880; 84484; 85025; 93005